=== PATIENT | female | born 1965 | race Two or more races ===

== ENCOUNTER 2021-04-13 20:58 | Emergency (ER) | payer OTHER ==
[~2021-04-13] VITALS: Ht 162.6 cm; Wt 62.0 kg
[2021-04-13] MEDS ORDERED: SODIUM CHLORIDE 0.9% 1,000 ML IV ONE (22:15)
[2021-04-13 22:42] LABS: BASOPHILS % 0.4 % (0.0-2.0); EOSINOPHILS % 1.2 % (0.0-5.0); HEMATOCRIT. 33.8 % (36.0-48.0); HEMOGLOBIN. 11.4 g/dL (12.0-16.0); LYMPHOCYTES % 11.2 % (20.0-50.0); MEAN CORPUSCULAR HEMOGLOBIN 32.2 pg (28.0-32.0); MEAN CORPUSCULAR VOLUME 95.8 fL (81.0-99.0); MEAN PLATELET VOLUME 8.9 fl (7.4-10.4); MONOCYTES % 9.1 % (2.0-8.0); NEUTROPHILS % 78.1 % (40.0-76.0); PLATELET 201 x1000/uL (130-400); RED BLOOD CELL COUNT 3.53 mill/uL (4.2-5.4)
[2021-04-13 22:49] LABS: CHLORIDE 107 mEq/L (98-107)
[2021-04-13 22:53] LABS: ETHANOL BLOOD < 10 mg/dL
[2021-04-13 23:27] LABS: CREATINE KINASE 53 IU/L (26-192)
[2021-04-13] MEDS ORDERED: ASPIRIN 81MG TABLET PO ONE (23:30)
[2021-04-14 00:50] VITALS: BP 108/69
== END 2021-04-14 01:24 | disposition short-term general hospital (02) ==
LOC: ER 20:58 → CANBEDREQ 04-14 20:27
DX: R55 Syncope and collapse (principal); R77.8 Other specified abnormalities of plasma proteins; I69.354 Hemiplegia and hemiparesis following cerebral infarction affecting left non-dominant side; I10 Essential (primary) hypertension
CPT/HCPCS: 36415; 70450; 71045; 80053; 80320; 82550; 83690; 83880; 84484; 85025; 93005; 96360; 99285; J7030; Z7610; G0480

== ENCOUNTER 2021-05-23 14:41 | Inpatient (IN) | payer OTHER ==
[~2021-05-23] VITALS: Ht 165.1 cm; Wt 68.0 kg
[2021-05-23 15:51] LABS: BASOPHILS % 0.5 % (0.0-2.0); EOSINOPHILS % 0.8 % (0.0-5.0); HEMATOCRIT. 33.4 % (36.0-48.0); HEMOGLOBIN. 11.7 g/dL (12.0-16.0); LYMPHOCYTES % 17.5 % (20.0-50.0); MEAN CORPUSCULAR VOLUME 93.8 fL (81.0-99.0); MEAN PLATELET VOLUME 8.2 fl (7.4-10.4); MONOCYTES % 9.6 % (2.0-8.0); NEUTROPHILS % 71.6 % (40.0-76.0); PLATELET 216 x1000/uL (130-400); RED BLOOD CELL COUNT 3.56 mill/uL (4.2-5.4); RED CELL DISTRIBUTION WIDTH 13.6 % (11.6-14.6)
[2021-05-23 15:56] LABS: CHLORIDE 107 mEq/L (98-107)
[2021-05-23 15:59] LABS: ETHANOL BLOOD < 10 mg/dL
[2021-05-23 17:46] LABS: *AMPHETAMINES SCREEN URINE NEGATIVE (NEGATIVE); *BARBITURATES SCREEN URINE NEGATIVE (NEGATIVE); *BENZODIAZEPINES SCREEN URINE NEGATIVE (NEGATIVE); *COCAINE SCREEN URINE NEGATIVE (NEGATIVE)
[2021-05-23 17:48] LABS: CANNABINOID URINE SCREEN NEGATIVE (NEGATIVE); METHADONE URINE SCREEN NEGATIVE (NEGATIVE); OPIATES URINE SCREEN NEGATIVE (NEGATIVE); PHENCYCLIDINE URINE SCREEN NEGATIVE (NEGATIVE)
[2021-05-23] MEDS ORDERED: IOHEXOL-350 100 ML BOTTLE ONE (18:02)
[2021-05-23 18:22] LABS: CLARITY URINE CLEAR (CLEAR); COLOR URINE YELLOW (YELLOW); KETONES URINE NEGATIVE (NEGATIVE); PH URINE 7.5 (4.5-8.0); PROTEIN URINE TRACE (NEGATIVE); SPECIFIC GRAVITY URINE 1.031 (1.005-1.030)
[2021-05-23 18:23] LABS: LEUKOCYTE ESTERASE URINE 1+ (NEGATIVE); NITRITE URINE NEGATIVE (NEGATIVE); OCCULT BLOOD URINE NEGATIVE (NEGATIVE); UROBILINOGEN URINE 0.2 E.U./dL (0.2-1.0)
[2021-05-23] MEDS ORDERED: POTASSIUM CHLORIDE 20MEQ TABLET SR PO NR (20:45)
[2021-05-23] MEDS ORDERED: MAGNESIUM/ALUMINUM HYDROXIDE/SIMETHICONE 30ML UDC PO PRN (20:45)
[2021-05-23] MEDS ORDERED: DOCUSATE SODIUM 100MG CAPSULE PO PRN (20:45)
[2021-05-23] MEDS ORDERED: ACETAMINOPHEN 325MG TABLET PO PRN (20:45)
[2021-05-23] MEDS ORDERED: IPRATROPIUM/ALBUTEROL 0.5-3(2.5)MG/3ML NEB NEB PRN (20:45)
[2021-05-23] MEDS ORDERED: GUAIFENESIN 200MG/10ML SUGAR FREE UDC PO PRN (20:45)
[2021-05-23] MEDS ORDERED: ONDANSETRON HCL 4MG/2ML INJ IV PRN (20:45)
[2021-05-23] MEDS ORDERED: NITROGLYCERIN 0.4MG TABLET SL SL PRN (20:45)
[2021-05-23] MEDS ORDERED: CEFTRIAXONE 1 G PREMIX 50 ML IV SCH (21:00)
[2021-05-23] MEDS ORDERED: ZOLPIDEM TARTRATE 5MG TABLET PO PRN (21:00)
[2021-05-23] MEDS: ENOXAPARIN 40MG/0.4ML SYR SUBCUT SCH (21:00)
[2021-05-23] MEDS: FAMOTIDINE 20MG TABLET PO SCH (21:00)
[2021-05-23 21:03] LABS: TOTAL IRON BINDING CAPACITY 356 ug/dL (250-450)
[2021-05-23 21:25] LABS: FOLIC ACID (FOLATE) SERUM 13.8 ng/mL (>5.38)
[2021-05-23 22:49] LABS: CREATINE KINASE 38 IU/L (26-192)
[2021-05-23 22:50] LABS: CREATINE KINASE MB FRACTION < 1.0 ng/mL (0.5-3.6)
[2021-05-24] MEDS: FAMOTIDINE 20MG TABLET PO SCH ×2 (08:23→21:28)
[2021-05-24] MEDS: CLOPIDOGREL 75MG TABLET PO SCH (08:23)
[2021-05-24] MEDS: CLONIDINE 0.1MG TABLET PO PRN (13:28)
[2021-05-24 15:13] LABS: BASOPHILS % 0.6 % (0.0-2.0); EOSINOPHILS % 0.8 % (0.0-5.0); HEMATOCRIT. 33.8 % (36.0-48.0); LYMPHOCYTES % 26.4 % (20.0-50.0); MONOCYTES % 11.1 % (2.0-8.0); NEUTROPHILS % 61.1 % (40.0-76.0); PLATELET 228 x1000/uL (130-400); RED BLOOD CELL COUNT 3.56 mill/uL (4.2-5.4); RED CELL DISTRIBUTION WIDTH 13.8 % (11.6-14.6)
[2021-05-24 15:19] LABS: CHLORIDE 111 mEq/L (98-107)
[2021-05-24 15:24] LABS: PHOSPHORUS 3.3 mg/dL (2.5-4.9)
[2021-05-24 15:27] LABS: CREATINE KINASE 33 IU/L (26-192)
[2021-05-24 15:31] LABS: CREATINE KINASE MB FRACTION < 1.0 ng/mL (0.5-3.6)
[2021-05-24] MEDS ORDERED: CEFTRIAXONE SODIUM 1 G/VIAL ONE (20:40)
[2021-05-24] MEDS: ENOXAPARIN 40MG/0.4ML SYR SUBCUT SCH (21:00)
[2021-05-24] MEDS: CEFTRIAXONE 1,000 MG in DEXTROSE 5% WATER 50 ML IV SCH (21:28)
[2021-05-24 22:00] VITALS: BP 145/97
[2021-05-25] VITALS: BP 148/90
[2021-05-25 04:00] VITALS: BP 150/95
[2021-05-25 08:00] VITALS: BP 154/85
[2021-05-25] MEDS: CLOPIDOGREL 75MG TABLET PO SCH (09:21)
[2021-05-25] MEDS: FAMOTIDINE 20MG TABLET PO SCH ×2 (09:21→23:02)
[2021-05-25 12:00] VITALS: BP 158/90
[2021-05-25 16:00] VITALS: BP 155/85
[2021-05-25 20:00] VITALS: BP 163/99
[2021-05-25] MEDS: CEFTRIAXONE 1,000 MG in DEXTROSE 5% WATER 50 ML IV SCH (23:02)
[2021-05-25] MEDS: ENOXAPARIN 40MG/0.4ML SYR SUBCUT SCH (23:03)
[2021-05-25] MEDS: CLONIDINE 0.1MG TABLET PO PRN (23:05)
[2021-05-26] VITALS: BP 127/59
[2021-05-26] MEDS: ACETAMINOPHEN 325MG TABLET PO PRN ×3 (02:57→21:32)
[2021-05-26 04:00] VITALS: BP 136/75
[2021-05-26 08:00] VITALS: BP 141/72
[2021-05-26] MEDS: FAMOTIDINE 20MG TABLET PO SCH ×2 (09:43→21:32)
[2021-05-26] MEDS ORDERED: LOSARTAN POTASSIUM 50 MG TABLET PO SCH (09:45)
[2021-05-26 12:00] VITALS: BP 139/74
[2021-05-26 16:00] VITALS: BP 135/73
[2021-05-26 20:00] VITALS: BP 154/98
[2021-05-26] MEDS ORDERED: ATORVASTATIN CALCIUM 20MG TABLET PO SCH (21:00)
[2021-05-26] MEDS: CEFTRIAXONE 1,000 MG in DEXTROSE 5% WATER 50 ML IV SCH (21:31)
[2021-05-26] MEDS: CLONIDINE 0.1MG TABLET PO PRN (21:33)
[2021-05-26] MEDS: ENOXAPARIN 40MG/0.4ML SYR SUBCUT SCH (21:35)
[2021-05-26] MEDS ORDERED: CARVEDILOL 12.5MG TABLET PO SCH (22:30)
[2021-05-27] VITALS: BP 172/90
[2021-05-27] MEDS: CLONIDINE 0.1MG TABLET PO PRN ×2 (03:11→22:31)
[2021-05-27 04:00] VITALS: BP 179/100
[2021-05-27] MEDS: LEVOTHYROXINE SODIUM 150MCG TABLET PO SCH (06:21)
[2021-05-27] MEDS: CYANOCOBALAMIN 1000MCG TABLET PO SCH (06:22)
[2021-05-27] MEDS ORDERED: LEVOTHYROXINE SODIUM 150MCG TABLET PO SCH (06:45)
[2021-05-27 07:03] LABS: BASOPHILS % 0.7 % (0.0-2.0); EOSINOPHILS % 4.5 % (0.0-5.0); HEMOGLOBIN. 10.7 g/dL (12.0-16.0); LYMPHOCYTES % 35.1 % (20.0-50.0); MEAN CORPUSCULAR HEMOGLOBIN 32.4 pg (28.0-32.0); MEAN PLATELET VOLUME 8.7 fl (7.4-10.4); MONOCYTES % 11.1 % (2.0-8.0); NEUTROPHILS % 48.6 % (40.0-76.0); PLATELET 214 x1000/uL (130-400); RED BLOOD CELL COUNT 3.29 mill/uL (4.2-5.4); RED CELL DISTRIBUTION WIDTH 13.3 % (11.6-14.6)
[2021-05-27] MEDS ORDERED: ASPI-1497 MT (07:13)
[2021-05-27] MEDS ORDERED: CYANOCOBALAMIN 1000MCG TABLET PO SCH (07:15)
[2021-05-27 07:23] LABS: CHLORIDE 109 mEq/L (98-107)
[2021-05-27 07:36] LABS: PHOSPHORUS 3.9 mg/dL (2.5-4.9)
[2021-05-27 07:37] LABS: LDL CHOLESTEROL 37 mg/dL (5-100)
[2021-05-27 07:40] LABS: HDL CHOLESTEROL 36 mg/dL (40-59)
[2021-05-27 07:53] VITALS: BP 196/94
[2021-05-27] MEDS: ASPIRIN 81MG TABLET PO SCH (07:54)
[2021-05-27] MEDS: FAMOTIDINE 20MG TABLET PO SCH ×2 (07:54→22:28)
[2021-05-27] MEDS: LOSARTAN POTASSIUM 100 MG TABLET PO SCH (07:54)
[2021-05-27] MEDS: CARVEDILOL 12.5MG TABLET PO SCH ×2 (07:55→21:00)
[2021-05-27] MEDS: AMLODIPINE 10MG TABLET PO SCH (07:56)
[2021-05-27] MEDS ORDERED: CYANOCOBALAMIN 1000MCG/ML VIAL IM SCH (09:00)
[2021-05-27] MEDS ORDERED: ASPIRIN 81MG TABLET PO SCH (09:00)
[2021-05-27 12:00] VITALS: BP 137/87
[2021-05-27] MEDS ORDERED: HYDRALAZINE HCL 50MG TABLET PO SCH (14:00)
[2021-05-27 15:54] VITALS: BP 126/86
[2021-05-27 20:00] VITALS: BP 183/99
[2021-05-27] MEDS: ATORVASTATIN CALCIUM 20MG TABLET PO SCH (22:28)
[2021-05-27] MEDS: ENOXAPARIN 40MG/0.4ML SYR SUBCUT SCH (22:29)
[2021-05-28] VITALS: BP 144/76
[2021-05-28 04:00] VITALS: BP 163/81
[2021-05-28] MEDS: LEVOTHYROXINE SODIUM 150MCG TABLET PO SCH (05:25)
[2021-05-28] MEDS: CEFTRIAXONE 1,000 MG in DEXTROSE 5% WATER 50 ML IV SCH ×2 (05:28→21:34)
[2021-05-28] MEDS: CYANOCOBALAMIN 1000MCG TABLET PO SCH (06:55)
[2021-05-28] MEDS: CLONIDINE 0.1MG TABLET PO PRN ×2 (06:55→17:45)
[2021-05-28 08:30] VITALS: BP 147/85
[2021-05-28] MEDS: ASPIRIN 81MG TABLET PO SCH (09:45)
[2021-05-28] MEDS: FAMOTIDINE 20MG TABLET PO SCH ×2 (09:46→21:34)
[2021-05-28] MEDS: AMLODIPINE 10MG TABLET PO SCH (09:46)
[2021-05-28] MEDS: CARVEDILOL 12.5MG TABLET PO SCH ×2 (09:46→21:35)
[2021-05-28] MEDS: LOSARTAN POTASSIUM 100 MG TABLET PO SCH (09:46)
[2021-05-28 12:00] VITALS: BP 150/87
[2021-05-28 16:00] VITALS: BP 175/98
[2021-05-28 20:00] VITALS: BP 132/82
[2021-05-28] MEDS: ENOXAPARIN 40MG/0.4ML SYR SUBCUT SCH (21:34)
[2021-05-28] MEDS: ATORVASTATIN CALCIUM 20MG TABLET PO SCH (21:35)
[2021-05-29] VITALS: BP 137/84
[2021-05-29 04:00] VITALS: BP 121/79
[2021-05-29] MEDS ORDERED: SYN150 MT (05:32)
[2021-05-29] MEDS ORDERED: HYDR-4135 MT (05:32)
[2021-05-29] MEDS ORDERED: CRES10 PO (05:32)
[2021-05-29] MEDS ORDERED: CYAN500T9 MT (05:32)
[2021-05-29] MEDS: LEVOTHYROXINE SODIUM 150MCG TABLET PO SCH (06:06)
[2021-05-29 08:00] VITALS: BP 150/90
[2021-05-29] MEDS: FAMOTIDINE 20MG TABLET PO SCH ×2 (09:08→22:36)
[2021-05-29] MEDS: ASPIRIN 81MG TABLET PO SCH (09:08)
[2021-05-29] MEDS: AMLODIPINE 10MG TABLET PO SCH (09:09)
[2021-05-29] MEDS: CARVEDILOL 12.5MG TABLET PO SCH ×2 (09:09→22:36)
[2021-05-29] MEDS: LOSARTAN POTASSIUM 100 MG TABLET PO SCH (09:10)
[2021-05-29] MEDS: CYANOCOBALAMIN 1000MCG TABLET PO SCH (09:11)
[2021-05-29] MEDS: HYDRALAZINE HCL 50MG TABLET PO SCH (10:57)
[2021-05-29 12:00] VITALS: BP 136/84
[2021-05-29 15:57] VITALS: BP 140/86
[2021-05-29 20:00] VITALS: BP 135/84
[2021-05-29] MEDS: ATORVASTATIN CALCIUM 20MG TABLET PO SCH (22:35)
[2021-05-29] MEDS: ENOXAPARIN 40MG/0.4ML SYR SUBCUT SCH (22:35)
[2021-05-29] MEDS: CEFTRIAXONE 1,000 MG in DEXTROSE 5% WATER 50 ML IV SCH (22:38)
[2021-05-30] VITALS (7 sets, daily range): BP systolic 125–156; BP diastolic 77–100
[2021-05-30] MEDS: LEVOTHYROXINE SODIUM 150MCG TABLET PO SCH (05:12)
[2021-05-30] MEDS: ASPIRIN 81MG TABLET PO SCH (09:25)
[2021-05-30] MEDS: HYDRALAZINE HCL 50MG TABLET PO SCH (09:25)
[2021-05-30] MEDS: FAMOTIDINE 20MG TABLET PO SCH ×2 (09:25→20:01)
[2021-05-30] MEDS: CARVEDILOL 12.5MG TABLET PO SCH ×2 (09:26→20:01)
[2021-05-30] MEDS: CYANOCOBALAMIN 1000MCG TABLET PO SCH (09:27)
[2021-05-30] MEDS: LOSARTAN POTASSIUM 100 MG TABLET PO SCH (09:27)
[2021-05-30] MEDS: AMLODIPINE 10MG TABLET PO SCH (09:27)
[2021-05-30] MEDS: ATORVASTATIN CALCIUM 20MG TABLET PO SCH (20:01)
[2021-05-30] MEDS: ENOXAPARIN 40MG/0.4ML SYR SUBCUT SCH (20:01)
[2021-05-31 04:00] VITALS: BP 121/73
[2021-05-31] MEDS: LEVOTHYROXINE SODIUM 150MCG TABLET PO SCH (06:18)
[2021-05-31] MEDS: CYANOCOBALAMIN 1000MCG TABLET PO SCH (06:18)
[2021-05-31 08:00] VITALS: BP 146/88
[2021-05-31 12:00] VITALS: BP 137/85
== END 2021-05-31 14:25 | disposition home health service (06) | DRG 64 ==
LOC: ER 14:41 → MICUSO 20:12 → EDBEDREQTM 20:20 → EDBEDREQSVC 20:20 → EDBEDREQ 20:20 → 5WST 05-24 21:04
PROVIDERS: ADMIT Internal Medicine; ATTEND Internal Medicine
DX: I63.9 Cerebral infarction, unspecified (principal); N17.0 Acute kidney failure with tubular necrosis; I61.4 Nontraumatic intracerebral hemorrhage in cerebellum; I69.351 Hemiplegia and hemiparesis following cerebral infarction affecting right dominant side; I10 Essential (primary) hypertension; E87.6 Hypokalemia; E78.5 Hyperlipidemia, unspecified; D64.9 Anemia, unspecified; R47.1 Dysarthria and anarthria; R79.89 Other specified abnormal findings of blood chemistry; Z20.822 Contact with and (suspected) exposure to COVID-19; R29.701 NIHSS score 1; D49.7 Neoplasm of unspecified behavior of endocrine glands and other parts of nervous system; R53.81 Other malaise; S00.83XA Contusion of other part of head, initial encounter; W01.0XXA Fall on same level from slipping, tripping and stumbling without subsequent striking against object, initial encounter; Y93.89 Activity, other specified; Y99.8 Other external cause status; Z82.49 Family history of ischemic heart disease and other diseases of the circulatory system; Y92.091 Bathroom in other non-institutional residence as the place of occurrence of the external cause
CPT/HCPCS: 36415; 70496; 70498; 70551; 71045; 72100; 80053; 80061; 80305; 80320; 81003; 82550; 82553; 82607; 82746; 82962; 83036; 83540; 83550; 83735; 84100; 84145; 84443; 84484; 85025; 87426; 93005; 93306; 93970; 97161; 97166; 97530; 99291; J0696; J1650; J7060; Q9967; G0480

== ENCOUNTER 2021-10-04 04:50 | Inpatient (IN) | payer MEDICAID, OTHER ==
[~2021-10-04] VITALS: Ht 165.1 cm; Wt 77.1 kg
[~2021-10-04 04:50] MED LIST: ASPI-1497 MT; CRES10 PO; CYAN500T9 MT; HYDR-4135 MT; SYN150 MT
[2021-10-04 06:06] LABS: PROTHROMBIN TIME 11.2 sec (9.6-11.0)
[2021-10-04 06:08] LABS: BASOPHILS % 0.7 % (0.0-2.0); EOSINOPHILS % 1.4 % (0.0-5.0); HEMATOCRIT. 37.1 % (36.0-48.0); HEMOGLOBIN. 12.4 g/dL (12.0-16.0); LYMPHOCYTES % 28.1 % (20.0-50.0); MEAN CORPUSCULAR HEMOGLOBIN 32.2 pg (28.0-32.0); MEAN CORPUSCULAR VOLUME 96.2 fL (81.0-99.0); MEAN PLATELET VOLUME 8.8 fl (7.4-10.4); MONOCYTES % 9.8 % (2.0-8.0); PLATELET 232 x1000/uL (130-400); RED BLOOD CELL COUNT 3.85 mill/uL (4.2-5.4)
[2021-10-04 06:11] LABS: CHLORIDE 110 mEq/L (98-107)
[2021-10-04 06:15] LABS: CLARITY URINE CLEAR (CLEAR); COLOR URINE YELLOW (YELLOW); KETONES URINE NEGATIVE (NEGATIVE); LEUKOCYTE ESTERASE URINE NEGATIVE (NEGATIVE); NITRITE URINE NEGATIVE (NEGATIVE); OCCULT BLOOD URINE NEGATIVE (NEGATIVE); PROTEIN URINE 2+ (NEGATIVE); SPECIFIC GRAVITY URINE 1.005 (1.005-1.030); UROBILINOGEN URINE 0.2 E.U./dL (0.2-1.0)
[2021-10-04 06:18] LABS: ETHANOL BLOOD < 10 mg/dL
[2021-10-04 06:47] LABS: *AMPHETAMINES SCREEN URINE NEGATIVE (NEGATIVE); *BARBITURATES SCREEN URINE NEGATIVE (NEGATIVE); *BENZODIAZEPINES SCREEN URINE NEGATIVE (NEGATIVE); *COCAINE SCREEN URINE NEGATIVE (NEGATIVE); CANNABINOID URINE SCREEN NEGATIVE (NEGATIVE); METHADONE URINE SCREEN NEGATIVE (NEGATIVE); OPIATES URINE SCREEN NEGATIVE (NEGATIVE); PHENCYCLIDINE URINE SCREEN NEGATIVE (NEGATIVE)
[2021-10-04] MEDS ORDERED: HYDRALAZINE 20MG/ML VIAL IV ONE (07:00)
[2021-10-04] MEDS ORDERED: SODIUM CHLORIDE 0.9% 1,000 ML IV ONE (07:00)
[2021-10-04] MEDS ORDERED: ASPIRIN 325MG EC TABLET PO ONE (07:00)
[2021-10-04] MEDS ORDERED: ATOR40TA70 MT (10:12)
[2021-10-04] MEDS ORDERED: LOSA100T32 PO (10:13)
[2021-10-04 10:14] VITALS: BP 175/100
[2021-10-04 10:24] VITALS: BP 175/100
[2021-10-04] MEDS ORDERED: HYDROCODONE/ACETAMINOPHEN 5/325MG TABLET PO PRN (11:15)
[2021-10-04] MEDS ORDERED: ACETAMINOPHEN 325MG TABLET PO PRN (11:15)
[2021-10-04] MEDS ORDERED: GUAIFENESIN 200MG/10ML SUGAR FREE UDC PO PRN (11:15)
[2021-10-04] MEDS ORDERED: ONDANSETRON HCL 4MG/2ML INJ IV PRN (11:15)
[2021-10-04] MEDS ORDERED: CLONIDINE 0.1MG TABLET PO PRN (11:15)
[2021-10-04] MEDS ORDERED: MAGNESIUM/ALUMINUM HYDROXIDE/SIMETHICONE 30ML UDC PO PRN (11:15)
[2021-10-04] MEDS ORDERED: DOCUSATE SODIUM 100MG CAPSULE PO PRN (11:15)
[2021-10-04] MEDS ORDERED: NALOXONE HCL 0.4MG/ML VIAL IV PRN (11:30)
[2021-10-04 12:00] VITALS: BP 161/82
[2021-10-04] MEDS ORDERED: HYDRALAZINE HCL 50MG TABLET PO SCH (12:00)
[2021-10-04] MEDS: LOSARTAN POTASSIUM 100 MG TABLET PO SCH (12:25)
[2021-10-04] MEDS: ENOXAPARIN 40MG/0.4ML SYR SUBCUT SCH (12:26)
[2021-10-04] MEDS: LEVOTHYROXINE SODIUM 150MCG TABLET PO SCH (13:00)
[2021-10-04] MEDS: HYDRALAZINE HCL 50MG TABLET PO SCH ×2 (14:09→21:03)
[2021-10-04 16:30] VITALS: BP 159/82
[2021-10-04 20:00] VITALS: BP 167/89
[2021-10-04] MEDS ORDERED: ATORVASTATIN CALCIUM 40MG TABLET PO SCH ×2 (21:00)
[2021-10-05] VITALS: BP 183/87
[2021-10-05 01:03] VITALS: BP 174/97
[2021-10-05 02:27] VITALS: BP 186/92
[2021-10-05 04:00] VITALS: BP 180/97
[2021-10-05] MEDS: HYDRALAZINE HCL 50MG TABLET PO SCH (05:19)
[2021-10-05] MEDS: LEVOTHYROXINE SODIUM 150MCG TABLET PO SCH (05:19)
[2021-10-05 08:00] VITALS: BP 151/88
[2021-10-05] MEDS: LOSARTAN POTASSIUM 100 MG TABLET PO SCH (08:07)
[2021-10-05] MEDS ORDERED: ASPIRIN 81MG EC TABLET PO SCH (09:00)
[2021-10-05 11:07] LABS: BASOPHILS % 0.6 % (0.0-2.0); HEMATOCRIT. 36.1 % (36.0-48.0); HEMOGLOBIN. 12.2 g/dL (12.0-16.0); LYMPHOCYTES % 31.3 % (20.0-50.0); MEAN CORPUSCULAR HEMOGLOBIN 32.5 pg (28.0-32.0); MEAN CORPUSCULAR VOLUME 96.5 fL (81.0-99.0); MEAN PLATELET VOLUME 9.2 fl (7.4-10.4); MONOCYTES % 10.1 % (2.0-8.0); PLATELET 227 x1000/uL (130-400); RED BLOOD CELL COUNT 3.75 mill/uL (4.2-5.4); RED CELL DISTRIBUTION WIDTH 15.3 % (11.6-14.6)
[2021-10-05 11:16] LABS: CHLORIDE 110 mEq/L (98-107)
[2021-10-05 11:30] LABS: HDL CHOLESTEROL 67 mg/dL (40-59); LDL CHOLESTEROL 40 mg/dL (5-100)
[2021-10-05 12:00] VITALS: BP 152/95
[2021-10-05] MEDS: ENOXAPARIN 40MG/0.4ML SYR SUBCUT SCH (12:00)
[2021-10-05] MEDS ORDERED: HYDRALAZINE HCL 100MG TABLET PO SCH (14:00)
== END 2021-10-05 15:50 | disposition home or self-care (01) | DRG 48 ==
LOC: ER 05:10 → 8WST 08:33 → EDBEDREQ 08:33 → EDBEDREQTM 08:40 → ENRESERV 08:58
PROVIDERS: ADMIT Hospitalist; ATTEND Hospitalist
DX: G57.81 Other specified mononeuropathies of right lower limb (principal); E88.09 Other disorders of plasma-protein metabolism, not elsewhere classified; I69.351 Hemiplegia and hemiparesis following cerebral infarction affecting right dominant side; I16.0 Hypertensive urgency; Z20.822 Contact with and (suspected) exposure to COVID-19; I10 Essential (primary) hypertension; E03.9 Hypothyroidism, unspecified; E78.5 Hyperlipidemia, unspecified; Z82.49 Family history of ischemic heart disease and other diseases of the circulatory system
CPT/HCPCS: 36415; 71045; 80053; 80061; 80305; 80320; 81003; 83880; 84439; 84443; 84484; 85025; 87426; 93005; 93970; 97162; 99291; J0360; J1650; J7030; G0480

== ENCOUNTER 2021-11-13 05:29 | Inpatient (IN) | payer MEDICAID ==
[~2021-11-13] VITALS: Ht 167.6 cm; Wt 78.6 kg
[~2021-11-13 05:29] MED LIST changes: +ATOR40TA70 MT; -HYDR-4135 MT; +LOSA100T32 PO
[2021-11-13 06:17] LABS: BASOPHILS % 0.9 % (0.0-2.0); EOSINOPHILS % 3.2 % (0.0-5.0); HEMATOCRIT. 36.9 % (36.0-48.0); HEMOGLOBIN. 12.3 g/dL (12.0-16.0); LYMPHOCYTES % 30.6 % (20.0-50.0); MEAN CORPUSCULAR HEMOGLOBIN 32.2 pg (28.0-32.0); MEAN CORPUSCULAR VOLUME 96.5 fL (81.0-99.0); MEAN PLATELET VOLUME 8.7 fl (7.4-10.4); MONOCYTES % 10.2 % (2.0-8.0); NEUTROPHILS % 55.1 % (40.0-76.0); PLATELET 185 x1000/uL (130-400); RED BLOOD CELL COUNT 3.82 mill/uL (4.2-5.4)
[2021-11-13 06:17] LABS: CLARITY URINE CLEAR (CLEAR); COLOR URINE YELLOW (YELLOW); KETONES URINE NEGATIVE (NEGATIVE); LEUKOCYTE ESTERASE URINE NEGATIVE (NEGATIVE); NITRITE URINE NEGATIVE (NEGATIVE); OCCULT BLOOD URINE NEGATIVE (NEGATIVE); PROTEIN URINE 1+ (NEGATIVE); SPECIFIC GRAVITY URINE 1.004 (1.005-1.030); UROBILINOGEN URINE 0.2 E.U./dL (0.2-1.0)
[2021-11-13 06:26] LABS: CHLORIDE 108 mEq/L (98-107)
[2021-11-13 06:33] LABS: PROTHROMBIN TIME 10.9 sec (9.6-11.0)
[2021-11-13] MEDS ORDERED: ASPIRIN 325MG EC TABLET PO ONE (07:00)
[2021-11-13] MEDS ORDERED: HYDRALAZINE 20MG/ML VIAL IV ONE (08:00)
[2021-11-13] MEDS ORDERED: CLONIDINE 0.1MG TABLET PO PRN (10:15)
[2021-11-13] MEDS: LOSARTAN POTASSIUM 50 MG TABLET PO SCH ×2 (11:10→21:02)
[2021-11-13] MEDS: CARVEDILOL 3.125 MG TABLET PO SCH ×2 (11:10→21:03)
[2021-11-13] MEDS: AMLODIPINE 5MG TABLET PO SCH ×2 (11:11→21:02)
[2021-11-13] MEDS ORDERED: ONDANSETRON HCL 4MG/2ML INJ IV PRN (16:00)
[2021-11-13] MEDS ORDERED: ACETAMINOPHEN 650MG/20.3ML UDC GT PRN (16:00)
[2021-11-13] MEDS: ENOXAPARIN 40MG/0.4ML SYR SUBCUT SCH (16:29)
[2021-11-13 20:00] VITALS: BP_SYST 151; BP_DIAS 80; BP_DIAS 82
[2021-11-13] MEDS: LEVETIRACETAM 500MG TABLET PO SCH (21:02)
[2021-11-13 23:34] LABS: CREATINE KINASE 43 IU/L (26-192); CREATINE KINASE MB FRACTION < 1.0 ng/mL (0.5-3.6)
[2021-11-14] VITALS: BP 146/87
[2021-11-14] MEDS ORDERED: CARV3.1242 MT (02:45)
[2021-11-14] MEDS ORDERED: HYDR-4135 MT (02:45)
[2021-11-14] MEDS ORDERED: AMLO5TAB88 MT (02:45)
[2021-11-14] MEDS ORDERED: LEVE500T19 MT (02:45)
[2021-11-14] MEDS ORDERED: ATOR20TA65 MT (02:45)
[2021-11-14] MEDS ORDERED: LEVO137T2 MT (02:47)
[2021-11-14 04:00] VITALS: BP 140/92
[2021-11-14 06:21] LABS: BASOPHILS % 0.7 % (0.0-2.0); EOSINOPHILS % 2.7 % (0.0-5.0); HEMATOCRIT. 35.4 % (36.0-48.0); HEMOGLOBIN. 11.8 g/dL (12.0-16.0); MEAN CORPUSCULAR HEMOGLOBIN 31.9 pg (28.0-32.0); MEAN CORPUSCULAR VOLUME 95.4 fL (81.0-99.0); MONOCYTES % 11.6 % (2.0-8.0); PLATELET 201 x1000/uL (130-400); RED BLOOD CELL COUNT 3.71 mill/uL (4.2-5.4); RED CELL DISTRIBUTION WIDTH 14.4 % (11.6-14.6)
[2021-11-14] MEDS: LEVOTHYROXINE SODIUM 150MCG TABLET PO SCH (06:21)
[2021-11-14 06:47] LABS: CHLORIDE 111 mEq/L (98-107)
[2021-11-14 07:03] LABS: CREATINE KINASE 36 IU/L (26-192); CREATINE KINASE MB FRACTION < 1.0 ng/mL (0.5-3.6)
[2021-11-14 08:00] VITALS: BP 147/87
[2021-11-14] MEDS: CARVEDILOL 3.125 MG TABLET PO SCH ×2 (10:07→21:24)
[2021-11-14] MEDS: LEVETIRACETAM 500MG TABLET PO SCH ×2 (10:08→21:23)
[2021-11-14] MEDS: LOSARTAN POTASSIUM 50 MG TABLET PO SCH ×2 (10:08→21:24)
[2021-11-14] MEDS: AMLODIPINE 5MG TABLET PO SCH ×2 (10:08→21:24)
[2021-11-14] MEDS: ASPIRIN 81MG EC TABLET PO SCH (10:08)
[2021-11-14 12:00] VITALS: BP 157/92
[2021-11-14 16:00] VITALS: BP 128/92
[2021-11-14] MEDS: ENOXAPARIN 40MG/0.4ML SYR SUBCUT SCH (16:06)
[2021-11-14 20:00] VITALS: BP 178/96
[2021-11-14] MEDS: CLONIDINE 0.1MG TABLET PO PRN (22:59)
[2021-11-15] VITALS (7 sets, daily range): BP systolic 135–187; BP diastolic 84–99
[2021-11-15] MEDS: HYDRALAZINE 20MG/ML VIAL IV PRN (00:32)
[2021-11-15] MEDS: LEVOTHYROXINE SODIUM 150MCG TABLET PO SCH (05:54)
[2021-11-15 07:35] LABS: BASOPHILS % 0.6 % (0.0-2.0); EOSINOPHILS % 3.3 % (0.0-5.0); HEMATOCRIT. 35.4 % (36.0-48.0); HEMOGLOBIN. 11.9 g/dL (12.0-16.0); LYMPHOCYTES % 33.6 % (20.0-50.0); MEAN CORPUSCULAR HEMOGLOBIN 31.9 pg (28.0-32.0); MEAN CORPUSCULAR VOLUME 95.1 fL (81.0-99.0); MEAN PLATELET VOLUME 9.1 fl (7.4-10.4); MONOCYTES % 10.1 % (2.0-8.0); NEUTROPHILS % 52.4 % (40.0-76.0); PLATELET 194 x1000/uL (130-400); RED BLOOD CELL COUNT 3.72 mill/uL (4.2-5.4)
[2021-11-15] MEDS: ASPIRIN 81MG EC TABLET PO SCH (08:37)
[2021-11-15] MEDS: LOSARTAN POTASSIUM 50 MG TABLET PO SCH ×2 (08:37→17:00)
[2021-11-15] MEDS: AMLODIPINE 5MG TABLET PO SCH ×2 (08:37→21:06)
[2021-11-15] MEDS: CARVEDILOL 3.125 MG TABLET PO SCH ×2 (08:37→21:05)
[2021-11-15] MEDS: LEVETIRACETAM 500MG TABLET PO SCH ×2 (08:38→21:06)
[2021-11-15] MEDS ORDERED: REGADENOSON 0.4 MG/5 ML IV NR (10:15)
[2021-11-15] MEDS: ENOXAPARIN 40MG/0.4ML SYR SUBCUT SCH (15:30)
[2021-11-15] MEDS: CLONIDINE 0.1MG TABLET PO PRN (21:06)
[2021-11-16] VITALS: BP 164/98
[2021-11-16 04:00] VITALS: BP 144/89
[2021-11-16] MEDS: LEVOTHYROXINE SODIUM 150MCG TABLET PO SCH (07:10)
[2021-11-16 08:00] VITALS: BP 147/92
[2021-11-16 08:09] LABS: BASOPHILS % 0.4 % (0.0-2.0); EOSINOPHILS % 3.9 % (0.0-5.0); HEMATOCRIT. 33.7 % (36.0-48.0); HEMOGLOBIN. 11.5 g/dL (12.0-16.0); LYMPHOCYTES % 38.9 % (20.0-50.0); MEAN CORPUSCULAR HEMOGLOBIN 32.7 pg (28.0-32.0); MEAN CORPUSCULAR VOLUME 95.3 fL (81.0-99.0); MEAN PLATELET VOLUME 9.3 fl (7.4-10.4); MONOCYTES % 10.8 % (2.0-8.0); PLATELET 190 x1000/uL (130-400); RED BLOOD CELL COUNT 3.53 mill/uL (4.2-5.4); RED CELL DISTRIBUTION WIDTH 14.1 % (11.6-14.6)
[2021-11-16] MEDS: CARVEDILOL 3.125 MG TABLET PO SCH (09:00)
[2021-11-16] MEDS: AMLODIPINE 5MG TABLET PO SCH (09:00)
[2021-11-16] MEDS: LOSARTAN POTASSIUM 50 MG TABLET PO SCH (09:00)
[2021-11-16] MEDS: LEVETIRACETAM 500MG TABLET PO SCH (09:00)
[2021-11-16] MEDS: ASPIRIN 81MG EC TABLET PO SCH (09:00)
[2021-11-16 12:00] VITALS: BP 151/87
[2021-11-16] MEDS ORDERED: REGADENOSON 0.4 MG/5 ML IV ONE (14:03)
[2021-11-16] MEDS ORDERED: AMLO5TAB88 MT (14:25)
[2021-11-16] MEDS ORDERED: ATOR20TA65 MT (14:25)
[2021-11-16] MEDS: HYDRALAZINE 20MG/ML VIAL IV PRN (15:55)
[2021-11-16] MEDS: ENOXAPARIN 40MG/0.4ML SYR SUBCUT SCH (15:56)
[2021-11-16 16:00] VITALS: BP 180/99
== END 2021-11-16 17:50 | disposition home or self-care (01) | DRG 203 ==
LOC: ER 06:02 → 8WST 08:55 → EDBEDREQ 09:05 → ENRESERV 17:15
PROVIDERS: ADMIT Internal Medicine; ATTEND Internal Medicine
DX: M94.0 Chondrocostal junction syndrome [Tietze] (principal); I69.351 Hemiplegia and hemiparesis following cerebral infarction affecting right dominant side; E03.9 Hypothyroidism, unspecified; E78.00 Pure hypercholesterolemia, unspecified; I10 Essential (primary) hypertension; R20.2 Paresthesia of skin; E78.5 Hyperlipidemia, unspecified; Z20.822 Contact with and (suspected) exposure to COVID-19; I16.0 Hypertensive urgency; G62.9 Polyneuropathy, unspecified; I34.0 Nonrheumatic mitral (valve) insufficiency; I35.1 Nonrheumatic aortic (valve) insufficiency; Z79.82 Long term (current) use of aspirin; Z79.899 Other long term (current) drug therapy; Z82.49 Family history of ischemic heart disease and other diseases of the circulatory system; Z86.16 Personal history of COVID-19
CPT/HCPCS: 36415; 70551; 71045; 78452; 80048; 80053; 81003; 82550; 82553; 83735; 83880; 84443; 84484; 85025; 87426; 93005; 93017; 93306; 93970; 99291; A9500; J0360; J1650; J2785

== ENCOUNTER 2021-11-25 02:49 | Inpatient (IN) | payer MEDICAID ==
[~2021-11-25] VITALS: Ht 165.1 cm; Wt 68.0 kg
[~2021-11-25 02:49] MED LIST changes: +AMLO5TAB88 MT; +ATOR20TA65 MT; -ATOR40TA70 MT; +CARV3.1242 MT; -CRES10 PO; +HYDR-4135 MT; +LEVE500T19 MT; -SYN150 MT
[2021-11-25 03:48] LABS: EOSINOPHILS % 1.8 % (0.0-5.0); HEMATOCRIT. 34.6 % (36.0-48.0); HEMOGLOBIN. 11.6 g/dL (12.0-16.0); LYMPHOCYTES % 27.1 % (20.0-50.0); MEAN CORPUSCULAR HEMOGLOBIN 31.6 pg (28.0-32.0); MEAN PLATELET VOLUME 8.5 fl (7.4-10.4); MONOCYTES % 8.7 % (2.0-8.0); NEUTROPHILS % 61.4 % (40.0-76.0); PLATELET 238 x1000/uL (130-400); RED BLOOD CELL COUNT 3.68 mill/uL (4.2-5.4); RED CELL DISTRIBUTION WIDTH 13.9 % (11.6-14.6)
[2021-11-25 03:58] LABS: CHLORIDE 107 mEq/L (98-107)
[2021-11-25 04:08] LABS: ETHANOL BLOOD < 10 mg/dL
[2021-11-25 04:34] LABS: VITAMIN B12 SERUM 989 pg/mL (211-911)
[2021-11-25] MEDS ORDERED: IOHEXOL-350 100 ML BOTTLE ONE ×2 (05:13→06:14)
[2021-11-25 05:25] LABS: CLARITY URINE CLEAR (CLEAR); COLOR URINE YELLOW (YELLOW); KETONES URINE NEGATIVE (NEGATIVE); LEUKOCYTE ESTERASE URINE NEGATIVE (NEGATIVE); NITRITE URINE NEGATIVE (NEGATIVE); OCCULT BLOOD URINE NEGATIVE (NEGATIVE); PROTEIN URINE NEGATIVE (NEGATIVE); SPECIFIC GRAVITY URINE 1.003 (1.005-1.030); UROBILINOGEN URINE 0.2 E.U./dL (0.2-1.0)
[2021-11-25 05:40] LABS: *AMPHETAMINES SCREEN URINE NEGATIVE (NEGATIVE); *BARBITURATES SCREEN URINE NEGATIVE (NEGATIVE); *BENZODIAZEPINES SCREEN URINE NEGATIVE (NEGATIVE); *COCAINE SCREEN URINE NEGATIVE (NEGATIVE); CANNABINOID URINE SCREEN NEGATIVE (NEGATIVE); METHADONE URINE SCREEN NEGATIVE (NEGATIVE); OPIATES URINE SCREEN NEGATIVE (NEGATIVE); PHENCYCLIDINE URINE SCREEN NEGATIVE (NEGATIVE)
[2021-11-25] MEDS: HYDRALAZINE 20MG/ML VIAL IV PRN (08:22)
[2021-11-25 09:57] VITALS: BP 160/92
[2021-11-25] MEDS ORDERED: LEVO137T2 PO (10:18)
[2021-11-25] MEDS: ASPIRIN 81MG TABLET PO SCH (10:29)
[2021-11-25] MEDS: ENOXAPARIN 40MG/0.4ML SYR SUBCUT SCH (10:30)
[2021-11-25] MEDS: AMLODIPINE 10MG TABLET PO SCH (10:30)
[2021-11-25] MEDS ORDERED: POTASSIUM CHLORIDE 20MEQ TABLET SR PO NR (11:00)
[2021-11-25 12:29] VITALS: BP 155/90
[2021-11-25 15:46] VITALS: BP 126/98
[2021-11-25 20:00] VITALS: BP 153/89
[2021-11-25 22:00] VITALS: BP 133/93
[2021-11-25] MEDS: ATORVASTATIN CALCIUM 40MG TABLET PO SCH (22:02)
[2021-11-26] VITALS (8 sets, daily range): BP systolic 140–169; BP diastolic 84–94
[2021-11-26] MEDS: HYDRALAZINE 20MG/ML VIAL IV PRN (01:33)
[2021-11-26] MEDS: ENOXAPARIN 40MG/0.4ML SYR SUBCUT SCH (08:36)
[2021-11-26] MEDS: AMLODIPINE 10MG TABLET PO SCH (08:36)
[2021-11-26] MEDS: ASPIRIN 81MG TABLET PO SCH (08:36)
[2021-11-26] MEDS: ATORVASTATIN CALCIUM 40MG TABLET PO SCH (20:12)
== END 2021-11-26 20:43 | disposition home or self-care (01) | DRG 47 ==
LOC: ER 02:49 → 8WST 03:31 → EDBEDREQSVC 04:10 → EDBEDREQ 04:10 → ENRESERV 07:12 → CANRESERV 07:12 → ENRESERV 07:13
PROVIDERS: ADMIT Internal Medicine; ATTEND Internal Medicine
DX: G45.9 Transient cerebral ischemic attack, unspecified (principal); I95.9 Hypotension, unspecified; I69.351 Hemiplegia and hemiparesis following cerebral infarction affecting right dominant side; I16.1 Hypertensive emergency; E03.9 Hypothyroidism, unspecified; I10 Essential (primary) hypertension; G40.909 Epilepsy, unspecified, not intractable, without status epilepticus; Z20.822 Contact with and (suspected) exposure to COVID-19
CPT/HCPCS: 36415; 70496; 70498; 70551; 71045; 80053; 80061; 80305; 80320; 81003; 82607; 84484; 85025; 87426; 93005; 99285; J0360; J1650; Q9967; G0480

== ENCOUNTER 2021-12-27 16:38 | Emergency (ER) | payer MEDICAID ==
[~2021-12-27] VITALS: Ht 157.5 cm; Wt 75.0 kg
[~2021-12-27 16:38] MED LIST changes: +LEVO137T2 PO
[2021-12-27 19:58] LABS: BASOPHILS % 0.8 % (0.0-2.0); EOSINOPHILS % 1.3 % (0.0-5.0); HEMOGLOBIN. 13.3 g/dL (12.0-16.0); LYMPHOCYTES % 23.9 % (20.0-50.0); MEAN CORPUSCULAR HEMOGLOBIN 32.3 pg (28.0-32.0); MEAN CORPUSCULAR VOLUME 97.3 fL (81.0-99.0); MEAN PLATELET VOLUME 8.2 fl (7.4-10.4); MONOCYTES % 7.7 % (2.0-8.0); NEUTROPHILS % 66.3 % (40.0-76.0); PLATELET 240 x1000/uL (130-400); RED BLOOD CELL COUNT 4.11 mill/uL (4.2-5.4); RED CELL DISTRIBUTION WIDTH 15.5 % (11.6-14.6)
[2021-12-27 20:08] LABS: CHLORIDE 108 mEq/L (98-107)
[2021-12-27] MEDS ORDERED: IBUP-2028 MT (23:42)
[2021-12-28 00:05] VITALS: BP 135/70
== END 2021-12-28 00:10 | disposition home or self-care (01) ==
LOC: ER 16:38
DX: I10 Essential (primary) hypertension (principal); M54.40 Lumbago with sciatica, unspecified side; R20.0 Anesthesia of skin; I69.951 Hemiplegia and hemiparesis following unspecified cerebrovascular disease affecting right dominant side
CPT/HCPCS: 36415; 72100; 80053; 85025; 99285